=== PATIENT | male | born 1970 | race Caucasian/White ===

== ENCOUNTER 2020-02-25 19:22 | Emergency (ER) | payer OTHER, MEDICAID ==
[~2020-02-25] VITALS: Ht 175.3 cm; Wt 72.6 kg
[2020-02-25 19:40] VITALS: BP 113/69
--- NOTE | 2020-02-25 19:40 | NUR ---
PT TAKEN TO ER BED 09
--- NOTE | 2020-02-25 19:54 | NUR ---
49 Y/O MALE C/O 04/15 SHARP R HIP/ARM PAIN POST FALL X1 HOUR AGO FROM FALLING OFF A BUNK BED. PT DENIES ANY OTC MEDS FOR PAIN. MED HX: SCHIZOPRENIA, R HIP AND R ARM METAL PLATES/SCREWS SINCE 1993 RX: [id number], LEVAQUON ALLERGIES TO PENICILLIN
[2020-02-25] MEDS ORDERED: KETOROLAC 60 MG/2 ML VIAL IM ONE (19:55)
--- NOTE | 2020-02-25 19:59 | NUR ---
XRAY AT BEDSIDE
[2020-02-25 20:53] VITALS: BP 113/69
== END 2020-02-25 20:53 | disposition home or self-care (01) ==
LOC: MED 19:22
DX: S50.01XA Contusion of right elbow, initial encounter (principal); S70.01XA Contusion of right hip, initial encounter; W06.XXXA Fall from bed, initial encounter; Y93.89 Activity, other specified; Y92.89 Other specified places as the place of occurrence of the external cause; Y99.8 Other external cause status
CPT/HCPCS: 73080; 73502; 96372; 99284; J1885; Q0092

== ENCOUNTER 2020-04-21 18:07 | Emergency (ER) | payer OTHER, MEDICAID ==
[~2020-04-21] VITALS: Ht 175.3 cm; Wt 66.7 kg
[2020-04-21 18:12] VITALS: BP 114/48
--- NOTE | 2020-04-21 18:49 | NUR ---
C/O PAIN TO R ELBOW S/P FALLING YESTERDAY. NOTICIBLE BUMP TO INSIDE OF R ELBOW. PT REPORTS NUMBNESS/TINGLING TO FINGERS. +2 PULSE TO R WRIST. CMS INTACT. PT REPORTS DISLOCATING SAME ELBOW ABOUT 1 MONTH AGO.
[2020-04-21] MEDS ORDERED: KETOROLAC 60 MG/2 ML VIAL IM ONE (18:50)
--- NOTE | 2020-04-21 18:52 | NUR ---
X-Ray at bedside.
--- NOTE | 2020-04-21 19:15 | NUR ---
49 Y/O M, CAME IN TO ER WITH COMPLAINTS OF RIGHT ELBOW PAIN. PT REPORTS ACCIDENTALLY SLIPPING AND FALLING ON RIGHT ARM. HX OF RIGHT ELBOW DISLOCATION. ALLERGIC TO PENICILLINS. RATES PAIN 01/13. VSS.
--- NOTE | 2020-04-21 19:47 | NUR ---
pts right arm wass placed in a shoulder sling. pts pmsc wnl.
--- NOTE | 2020-04-21 19:53 | NUR ---
PT REPORTS PAIN IS IMPROVING AND TOLERABLE AT 4/10. IN STABLE CONDITION. REQUESTING BUS PASS.
--- NOTE | 2020-04-21 20:03 | NUR ---
PT WAITING FOR BUS PASS. NO COMPLAINTS AT THIS TIME.
--- NOTE | 2020-04-21 20:11 | NUR ---
Patient discharged with v/s stable. Written and verbal after care instructions given and explained. Patient alert, oriented and verbalized understanding of instructions. Ambulatory with steady gait. All questions addressed prior to discharge. ID band removed. Patient advised to follow up with PMD. Rx of NAPROXEN given. Patient educated on indication of medication including possible reaction and side effects. Opportunity to ask questions provided and answered.PT STABLE, GIVEN BUS PASS, REPORTS PAIN IS ALLEVIATED. SLING INTACT.
== END 2020-04-21 19:56 | disposition home or self-care (01) ==
LOC: MED 18:07
DX: M25.521 Pain in right elbow (principal); W18.39XA Other fall on same level, initial encounter; Y93.89 Activity, other specified; Y92.89 Other specified places as the place of occurrence of the external cause; Y99.8 Other external cause status; Z88.0 Allergy status to penicillin
CPT/HCPCS: 73080; 96372; 99283; J1885; Q0092

== ENCOUNTER 2021-03-22 17:51 | Emergency (ER) | payer OTHER, MEDICAID ==
[~2021-03-22] VITALS: Ht 175.3 cm; Wt 68.0 kg
[2021-03-22 18:19] VITALS: BP 138/79
--- NOTE | 2021-03-22 19:35 | NUR ---
KELLEY SCHAFFER BY CHAIR EXAMINING PATIENT
--- NOTE | 2021-03-22 19:35 | NUR ---
PT. 50 Y/O MALE THAT CAME INTO ED WITH C/O OF RIGHT ELBOW PAIN. PT. STATES THAT "HE OPENED THE CAR DOOR AND HIS ELBOW POPPED OUT BUT HE POPPED IT BACK IN." DENIES N/V/D/FEVER. SKIN IS PINK/WARM/DRY; AAOX4 WITH EVEN AND STEADY GAIT; HR EVEN AND REGULAR; PT DENIES ANY FEVER, CP, SOB, OR COUGH AT THIS TIME; VSS; PATIENT POSITIONED FOR COMFORT; HOB ELEVATED; BEDRAILS UP X2; BED DOWN. ER MD MADE AWARE OF PT STATUS. PMH: "PSYCH PROBLEMS" ALLERGIES: PCN
[2021-03-22] MEDS ORDERED: NAPR-54 PO (19:44)
[2021-03-22] MEDS: KETOROLAC 60 MG/2 ML VIAL IM ONE (19:54)
[2021-03-22 19:56] VITALS: BP 138/79
== END 2021-03-22 19:56 | disposition home or self-care (01) ==
LOC: MED 17:51
DX: S53.401A Unspecified sprain of right elbow, initial encounter (principal); F17.210 Nicotine dependence, cigarettes, uncomplicated; F12.90 Cannabis use, unspecified, uncomplicated; Z71.6 Tobacco abuse counseling; Z88.0 Allergy status to penicillin; Z79.899 Other long term (current) drug therapy; X58.XXXA Exposure to other specified factors, initial encounter; Y93.89 Activity, other specified; Y92.89 Other specified places as the place of occurrence of the external cause; Y99.8 Other external cause status
CPT/HCPCS: 73080; 96372; 99283; J1885